=== PATIENT | female | born 1975 | race Caucasian/White ===

== ENCOUNTER → 2017-02-12 | Outpatient (CLI) | payer BC ==
--- NOTE | 2017-02-12 14:22 | KCIC ---
EXAM: MRI RIGHT KNEE WITHOUT CONTRAST. HISTORY: Right knee pain and swelling after a fall. TECHNIQUE: MRI of the right knee was performed without intravenous contrast. COMPARISON: None. FINDINGS: There is a nondisplaced fracture of the proximal fibula. Fracture lines intersect the proximal tibiofibular joint. Alignment is maintained. There is surrounding soft tissue edema without a hematoma. There is a partial tear at the insertion of the fibular collateral ligament. Some fibers remain intact. The popliteus tendon and the remainder of the lateral collateral ligament complex is intact. The anterior cruciate ligament and posterior cruciate ligament are intact. The axial is intact. The patellar retinacula and extensor mechanism are intact. The medial and lateral menisci are intact. The articular cartilage demonstrates no focal defects. There is a moderate to large joint effusion. IMPRESSION: 1. Nondisplaced fracture of the proximal fibula. 2. Partial tears at the insertion of the fibular collateral ligament. Correlate for stability. 3. Large joint effusion. Electronically signed by: Misael Mitchell MD (02/12/2017 2:19 PM) [id number]
== END | disposition home or self-care (01) ==
LOC: KCIC MRI 13:10
PROVIDERS: ATTEND Family Medicine
DX: M25.561 Pain in right knee (principal); M25.461 Effusion, right knee
CPT/HCPCS: 73721